=== PATIENT | male | born 1995 | race Two or more races ===

== ENCOUNTER 2022-07-16 20:36 | Emergency (ER) | payer OTHER ==
--- NOTE | 2022-07-16 22:18 | NUR ---
CALLED FOR TRIAGE. NO ANSWER
--- NOTE | 2022-07-16 22:55 | NUR ---
CALLED FOR TRIAGE. NO ANSWER
--- NOTE | 2022-07-16 22:58 | NUR ---
CALLED FOR TRIAGE. NO ANSWER
== END 2022-07-16 22:59 | disposition left against medical advice (07) ==
LOC: ER 20:39
DX: Z53.21 Procedure and treatment not carried out due to patient leaving prior to being seen by health care provider (principal)